=== PATIENT | female | born 1965 | race American Indian/Alaskan Native ===

== ENCOUNTER 2017-04-16 11:58 | Emergency (ER) | payer SELFPAY ==
[2017-04-16 13:35] LABS: Basophils % (Auto) 0.9 % (0.0-1.8); Eosinophils % (Auto) 1.2 % (0.0-4.3); Hematocrit 33.3 % (30.3-42.9); Hemoglobin 10.1 gm/dl (10.1-14.3); Lymphocytes # (Auto) 1.1 K/mm3 (1.2-5.4); Lymphocytes % (Auto) 31.4 % (13.4-35.0); Mean Corpuscular HGB Conc 31 % (30-34); Mean Corpuscular Volume 77 fl (79-97); Monocytes # (Auto) 0.5 K/mm3 (0.0-0.8); Monocytes % (Auto) 14.6 % (0.0-7.3); Platelet Count 352 K/mm3 (140-440); Red Blood Count 4.33 M/mm3 (3.65-5.03); Red Cell Distribution Width 19.9 % (13.2-15.2)
[2017-04-16 13:41] LABS: Mean Corpuscular Hemoglobin 23 pg (28-32)
[2017-04-16] MEDS ORDERED: NORMODYNE IV ONE ×2 (13:46→15:52)
[2017-04-16 13:50] LABS: BUN/Creatinine Ratio 10; Blood Urea Nitrogen 7 mg/dL (7-17); Calcium 8.6 mg/dL (8.4-10.2); Hemolysis Index 2
[2017-04-16] MEDS ORDERED: VITAMIN B-1 100 MG, FOLVITE 1 MG, INFUVITE 10 ML in NACL 0.9% 1000 ML 1,000 ML IV ONE (14:00)
[2017-04-16 14:17] LABS: INR 0.95 (0.87-1.13)
[2017-04-16 14:18] LABS: Partial Thromboplastin Time 29.7 Sec. (24.2-36.6)
--- NOTE | 2017-04-16 14:25 | Emergency Department Report ---
ED General Adult HPI - General Chief complaint: Psych Stated complaint: ALCOHOLIC, PSYCH Time Seen by Provider: 04/16/17 13:24 Source: patient, family Mode of arrival: Ambulatory Limitations: No Limitations - History of Present Illness Initial comments: The patient appears to be experiencing alcohol intoxication. She admits to excessive alcohol. She states that she has "medical problems". He only was she specifies that his hypertension. She also admits that she was treated at [facility] about 5 months ago for alcohol intoxication. According to triage note patient has had an alcohol binge for the last 3-4 days. Her daughter reported to the hospital for medical evaluation. Patient does not complain of chest pain or abdominal pain. She was found to have an initial blood pressure of 174/112. She is noncompliant with medication. -: hour(s), days(s) Quality: other (denies chest or abdominal pain) Associated Symptoms: denies other symptoms - Related Data Previous Rx's Medication Instructions Recorded Last Taken Type Amlodipine Besylate [Norvasc] 5 mg PO DAILY #30 tablet 04/16/17 Unknown Rx Allergies Allergy/AdvReac Type Severity Reaction Status Date / Time acetaminophen [From Tylenol] Allergy Itching Verified 04/16/17 12:38 ED Review of Systems ROS: Stated complaint: ALCOHOLIC, PSYCH Other details as noted in HPI Constitutional: denies: chills, fever Eyes: denies: eye pain ENT: denies: ear pain, throat pain Respiratory: denies: cough, shortness of breath, wheezing Cardiovascular: denies: chest pain, palpitations Endocrine: no symptoms reported Gastrointestinal: denies: abdominal pain, nausea, diarrhea Genitourinary: denies: urgency, dysuria, discharge Musculoskeletal: denies: back pain, joint swelling, arthralgia Skin: denies: rash, lesions Neurological: denies: headache, weakness, paresthesias Psychiatric: as per HPI (alcohol abuse). denies: anxiety, depression Hematological/Lymphatic: denies: easy bleeding, easy bruising ED Past Medical Hx - Past Medical History Hx Hypertension: Yes (No Meds) Hx Psychiatric Treatment: Yes (No Meds/Depression) Additional medical history: Fibroids - Surgical History Additional Surgical History: Fibroids removed - Social History Smoking Status: Never Smoker Substance Use Type: Alcohol - Medications Home Medications: Home Medications Medication Instructions Recorded Confirmed Last Taken Type Amlodipine Besylate [Norvasc] 5 mg PO DAILY #30 tablet 04/16/17 Unknown Rx ED Physical Exam - General Limitations: Other (apparent alcohol intoxication) General appearance: alert, in no apparent distress - Head Head exam: Present: atraumatic, normocephalic - Eye Eye exam: Present: normal appearance, PERRL, EOMI. Absent: scleral icterus - ENT ENT exam: Present: mucous membranes dry - Neck Neck exam: Present: normal inspection. Absent: tenderness, meningismus - Respiratory Respiratory exam: Present: normal lung sounds bilaterally. Absent: respiratory distress - Cardiovascular Cardiovascular Exam: Present: regular rate, normal rhythm. Absent: systolic murmur, diastolic murmur, rubs, gallop - GI/Abdominal GI/Abdominal exam: Present: soft, normal bowel sounds. Absent: distended, tenderness, guarding, rebound, rigid - Extremities Exam Extremities exam: Present: normal inspection - Back Exam Back exam: Present: normal inspection - Neurological Exam Neurological exam: Present: alert, oriented X3, CN II-XII intact. Absent: motor sensory deficit - Psychiatric Psychiatric exam: Present: normal affect, normal mood - Skin Skin exam: Present: warm, dry, intact, normal color. Absent: rash ED Course Vital Signs 04/16/17 04/16/17 04/16/17 12:29 12:36 14:41 Temperature 98.3 F 98.3 F Pulse Rate 120 H 120 H Respiratory 16 16 Rate Blood Pressure 174/112 162/102 Blood Pressure 174/112 [Right] O2 Sat by Pulse 98 98 Oximetry 04/16/17 14:56 Temperature Pulse Rate 81 Respiratory Rate Blood Pressure Blood Pressure 177/99 [Right] O2 Sat by Pulse Oximetry - Reevaluation(s) Reevaluation #1: Patient's blood pressure was addressed with labetalol. She was given a banana bag. She'll wait on sobriety. She will be referred to outpatient follow-up. According to the nurse the patient's family will be picking her up. She will be observed until sobriety. 04/16/17 15:49 ED Medical Decision Making - Lab Data Result diagrams: 04/16/17 Unknown 04/16/17 Unknown Laboratory Results - last 24 hr 04/16/17 04/16/17 04/16/17 Unknown Unknown Unknown WBC RBC Hgb Hct MCV MCH MCHC RDW Plt Count Lymph % (Auto) [place] % (Auto) Eos % (Auto) Baso % (Auto) Lymph # [place] # Eos # Baso # Seg Neutrophils % Seg Neutrophils # PT INR APTT Sodium 140 Potassium 3.8 Chloride 98.1 Carbon Dioxide 25 Anion Gap 21 BUN 7 Creatinine 0.7 Estimated GFR > 60 BUN/Creatinine Ratio 10 Glucose 67 Calcium 8.6 Salicylates < 0.3 L Plasma/Serum Alcohol 0.35 H 04/16/17 04/16/17 Unknown Unknown WBC 3.4 L RBC 4.33 Hgb 10.1 Hct 33.3 MCV 77 L MCH 23 L MCHC 31 RDW 19.9 H Plt Count 352 Lymph % (Auto) 31.4 [place] % (Auto) 14.6 H Eos % (Auto) 1.2 Baso % (Auto) 0.9 Lymph # 1.[address] [place] # 0.5 Eos # 0.0 Baso # 0.0 Seg Neutrophils % 51.9 Seg Neutrophils # 1.8 PT 13.1 INR 0.95 APTT 29.7 Sodium Potassium Chloride Carbon Dioxide Anion Gap BUN Creatinine Estimated GFR BUN/Creatinine Ratio Glucose Calcium Salicylates Plasma/Serum Alcohol Critical care attestation.: If time is entered above; I have spent that time in minutes in the direct care of this critically ill patient, excluding procedure time. ED Disposition Clinical Impression: Uncontrolled hypertension Alcohol intoxication Qualifiers: Complication of substance-induced condition: with delirium Qualified Code(s): F10.921 - Alcohol use, unspecified with intoxication delirium Disposition: - TO HOME OR SELFCARE Is pt being admited?: No Does the pt Need Aspirin: No Condition: Stable Instructions: Hypertension (ED) Additional Instructions: Obviously decrease her alcohol consumption. Follow-up with a primary care provider [facility]. Rx for blood pressure management. Return any acute change or problem. Prescriptions: Amlodipine Besylate [Norvasc] 5 mg PO DAILY #30 tablet Referrals: PRIMARY CARE [Primary Care Provider] - 3-5 Days [facility] [Outside] - 3-5 Days [facility] [Outside] - 3-5 Days [facility] [Provider Group] - 3-5 Days Time of Disposition: 17:52
[2017-04-16 14:31] LABS: Creatine Kinase MB 2.3 ng/mL (0.0-4.0)
[2017-04-16 14:32] LABS: Alanine Aminotransferase 31 units/L (7-56); Albumin 4.6 g/dL (3.9-5)
[2017-04-16 14:58] LABS: Bilirubin,Direct < 0.2 mg/dL (0-0.2)
[2017-04-16 18:54] VITALS: BP 141/91
== END 2017-04-16 19:00 | disposition home or self-care (01) ==
LOC: ED 11:58
DX: F10.921 Alcohol use, unspecified with intoxication delirium (principal); I10 Essential (primary) hypertension
CPT/HCPCS: 36415; 80048; 80074; 82550; 82553; 83880; 85025; 85610; 85730; 93005; 93010; 96365; 96367; 96375; 96376; 99283; G0480; J3411; J7030; 80320